=== PATIENT | male | born 1960 | race Caucasian/White ===

== ENCOUNTER 2024-04-25 08:03 | Emergency (ER) | payer OTHER ==
--- NOTE | 2024-04-25 09:05 | RAD REPORT ---
Exam:Finger-Thumb Right HISTORY: Right finger pain FINDINGS: Amputation involves portion of the second distal phalanx. No dislocation seen
[2024-04-25] MEDS ORDERED: NA CHLORIDE 0.9% 250 ML ONE (09:55)
[2024-04-25] MEDS ORDERED: CEFAZOLIN SODIUM 2 GM/VIAL ONE (09:55)
[2024-04-25 10:06] LABS: Absolute Basophils 0.1 K/uL (0-0.5); Absolute Monocytes 0.7 K/uL (0.1-1.3); Absolute Neutrophil 4.3 K/uL (1.8-8.0); Eosinophils % 0.6 % (0-4.4); Hematocrit 39.2 % (39.6-49.0); Hemoglobin 12.4 g/dL (13.6-17.9); Lymphocytes % 27.9 % (15.3-44.8); MCH 28.6 pg (27.0-35.0); MCHC 31.5 g/dL (32.0-36.0); MPV 9.3 fL (7.6-11.3); Neutrophils % 60.5 % (41.7-73.7); Platelets 207 thou/uL (152-406); RBC Red Blood Cell Count 4.31 M/uL (4.33-5.43); Red Cell Distribution Width 13.3 % (12.1-15.2)
[2024-04-25 10:24] LABS: Albumin 3.9 g/dL (3.4-5.0); Anion Gap 8.5 mEq/L (5.0-15.0); Bilirubin Total 0.7 mg/dL (0.2-1.0); Globulin 3.9 g/dL (2.3-3.5); Potassium 4.5 mEq/L (3.5-5.1); Protein, Total 7.8 g/dL (6.4-8.2)
[2024-04-25] MEDS ORDERED: TDAP (DIPHTH,PERTUSS(ACELL),TET VAC) 0.5 ML VIAL IMVAC ONE (10:29)
--- NOTE | 2024-04-25 10:45 | ER ---
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 Coronavirus bp screen: At this time, the client does not indicate any symptoms associated with coronavirus-19. Ebola Screen: No symptoms or risks identified at this time. Initial Sepsis Screen: Does the patient meet any 2 criteria? No. Patient's initial sepsis screen is negative. Does the patient have a suspected source of infection? No. Patient's initial sepsis screen is negative. Risk Assessment: Do you want to hurt yourself or someone else? Patient reports no desire to harm self or others. Onset of symptoms was April 25, 2024 at 05:00. 08:04 Method Of Arrival: EMS: [facility] bp 08:04 Acuity: SHIVA 3 bp Triage Assessment: 08:06 General: Appears in no apparent distress. Behavior is calm, cooperative, appropriate bp for age. Pain: Denies pain. EENT: No deficits noted. Neuro: No deficits noted. Cardiovascular: No deficits noted. Respiratory: No deficits noted. GI: No signs and/or symptoms were reported involving the gastrointestinal system. : No signs and/or symptoms were reported regarding the genitourinary system. Derm: No deficits noted. Musculoskeletal: Amputation of dorsal aspect of distal phalanx of right index finger. Injury Description: Amputation sustained to dorsal aspect of distal phalanx of right index finger. 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 - Infectious Disease History:: Denies. - Social history:: Smoking status: Patient denies any tobacco usage or history of. Screenin:49 [facility] ED Fall Risk Assessment (Adult) History of falling in the last 3 months, bp including since admission No falls in past 3 months (0 pts) Confusion or Disorientation No (0 pts) Intoxicated or Sedated No (0 pts) Impaired Gait No (0 pts) Mobility Assist Device Used No (0 pt) Altered Elimination No (0 pt) Score/Fall Risk Level 0 - 2 = Low Risk Oriented to surroundings. Abuse screen: Denies threats or abuse. Denies injuries from another. Nutritional screening: No deficits noted. Tuberculosis screening: No symptoms or risk factors identified. Assessment: 08:06 General: SEE TRIAGE NOTE. bp 10:00 Reassessment: Patient appears in no apparent distress at this time. Patient is alert, bp oriented x 3, equal unlabored respirations, skin warm/dry/pink. TRANSFER INITIATED. 11:48 Reassessment: REPORT TO [facility]. TRANSPORT PENDING. bp 13:13 Reassessment: PT CHARISMA WITH EMS. bp Vital Signs: 08:04 BP 142 / 83; Pulse 81; Resp 12; Temp 98; Pulse Ox 100% ; bp 10:00 BP 145 / 79; Pulse 75; Resp 16; Temp 98; Pulse Ox 100% ; bp 11:47 BP 117 / 75; Pulse 69; Resp 16; Pulse Ox 100% ; bp ED Course: 08:04 Patient arrived in ED. bp 08:06 Triage completed. bp 08:06 Arm band placed on. bp 08:07 Jessica Guadalupe MD is Attending Physician. gb1 08:09 Howie Gunderson, AMARA is Primary Nurse. bp 08:52 Finger-Thumb RIGHT XRAY In Process Unspecified. EDMS 08:53 Ortho notified at 08:54. bd 08:57 Ortho paged at 08:58. bd 09:42 Ortho returned call at 09:40. bd 09:46 initiated transfer to [facility]. bd 09:49 Patient has correct armband on for positive identification. bp 09:49 Initial lab(s) drawn, by me, sent to lab. Inserted saline lock: 20 gauge in left bp antecubital area, using aseptic technique. Blood collected. 11:14 pt accepted in transfer to [facility] by dr Matt Mehta admin approval given bd by Karely,pt going to rm 703 bed 2. 11:20 No provider procedures requiring assistance completed. Patient transferred, IV remains ll1 in place. 11:41 Provided Education on: NA. 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 bp Outcome: 10:44 ER care complete, transfer ordered by gb1 11:19 Transferred by ground EMS to [facility], Transfer form ll1 completed. 11:19 Transferred Note: report called to Liza Toscano RN at [facility] 11:19 Condition: stable 11:19 Instructed on the need for transfer, 13:14 Patient left the ED. bp Signatures: Dispatcher [employer] EDMS Tarsha Rod Brian, RN RN bp Lynnette Pearson RN RN ll1 Jessica Guadalupe MD MD gb1 Corrections: (The following items were deleted from the chart) 08:54 08:52 Ortho bd bd 11:42 11:40 BP 145 / 79; Pulse 75bpm; Resp 16bpm; Pulse Ox 100%; Temp 98F; bp bp 11:48 11:40 Reassessment: Patient appears in no apparent distress at this time. Patient is bp alert, oriented x 3, equal unlabored respirations, skin warm/dry/pink. TRANSFER INITIATED. bp
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
[2024-04-25 16:42] VITALS: TEMP 98; O2SAT 100
[2024-04-25 16:45] VITALS: BP 117/75
== END 2024-04-25 13:14 | disposition short-term general hospital (02) ==
LOC: ER 08:03
DX: S62.630B Displaced fracture of distal phalanx of right index finger, initial encounter for open fracture (principal); Z23 Encounter for immunization
CPT/HCPCS: 36415; 80053; 85025; 90471; 96365; 96366; 99285; J7050